=== PATIENT | female | born 1980 | race Caucasian/White ===

== ENCOUNTER 2019-12-10 15:32 | Outpatient (CLI) | payer OTHER ==
[2019-12-10] MEDS ORDERED: MULT-706 PO (16:03)
[2019-12-10] MEDS ORDERED: Echinacea PO (16:03)
[2019-12-10] MEDS ORDERED: [UNRECOGNIZED DRUG - OTHER] PO (16:03)
[2019-12-10] MEDS ORDERED: OMEG-76 PO (16:03)
[2019-12-10] MEDS ORDERED: [UNRECOGNIZED DRUG - OTHER] PO (16:03)
[2019-12-10] MEDS ORDERED: CHOL10003 PO (16:03)
[2019-12-10] MEDS ORDERED: MULT-658 PO (16:03)
[2019-12-10] MEDS ORDERED: NATURAL VITALITY PO (16:03)
[2019-12-10] MEDS ORDERED: RENAFOOD PO (16:03)
[2019-12-10] MEDS ORDERED: Livaplex PO (16:03)
[2019-12-10] MEDS ORDERED: ASCO100019 PO (16:03)
[2019-12-10] MEDS ORDERED: CALCIUM LACTATE PO (16:03)
[2019-12-10] MEDS ORDERED: [UNRECOGNIZED DRUG - OTHER] PO (16:03)
[2019-12-10] MEDS ORDERED: [UNRECOGNIZED DRUG - OTHER] PO (16:03)
[2019-12-10] MEDS ORDERED: [UNRECOGNIZED DRUG - OTHER] PO (16:03)
[2019-12-10] MEDS ORDERED: LACT1CAP35 PO (16:03)
[2019-12-10] MEDS ORDERED: POTA99TA2 PO (16:03)
[2019-12-10] MEDS ORDERED: CALCIUM PO (16:03)
[2019-12-10] MEDS ORDERED: MAG PO (16:03)
[2019-12-10] MEDS ORDERED: [UNRECOGNIZED DRUG - OTHER] PO (16:03)
[2019-12-10 16:11] LABS: BASOPHILS # (AUTO) 0.04 x10^3/uL (0-0.1); BASOPHILS % (AUTO) 1 % (0-1); EOSINOPHILS # (AUTO) 0.04 x10^3/uL (0-0.4); EOSINOPHILS % (AUTO) 0 % (1-7); LYMPHOCYTES # (AUTO) 1.42 x10^3/uL (1-3.4); LYMPHOCYTES % (AUTO) 17 % (22-44); MD NO; MEAN CORPUSCULAR HGB CONC 32.8 g/dL (32.4-35.8); MEAN CORPUSCULAR VOLUME 94.5 fL (80-100); MEAN PLATELET VOLUME 7.8 fL (7.4-10.4); MONOCYTES # (AUTO) 0.55 x10^3/uL (0.2-0.8); MONOCYTES % (AUTO) 7 % (2-9); NEUTROPHILS # (AUTO) 6.12 x10^3/uL (1.8-6.8); NEUTROPHILS % (AUTO) 75 % (42-75); PLATELET COUNT 269 x10^3/uL (130-400); RED BLOOD COUNT 4.54 x10^6/uL (3.82-5.3); RED CELL DISTRIBUTION WIDTH 13.5 % (9.6-15.2)
[2019-12-10 16:38] LABS: MICROSCOPIC AUTO
== END 2019-12-10 23:59 | disposition home or self-care (01) ==
LOC: STAR 15:32
PROVIDERS: ATTEND Obstetrics & Gynecology
DX: Z01.818 Encounter for other preprocedural examination (principal); N92.0 Excessive and frequent menstruation with regular cycle; N94.6 Dysmenorrhea, unspecified
CPT/HCPCS: 36415; 81001; 85025; 87086

== ENCOUNTER 2019-12-18 09:43 | Day surgery (SDC) | payer OTHER ==
[~2019-12-18] VITALS: Ht 170.2 cm; Wt 66.6 kg
[~2019-12-18 09:43] MED LIST: ASCO100019 PO; CALCIUM LACTATE PO; CALCIUM PO; CHOL10003 PO; Echinacea PO; LACT1CAP35 PO; Livaplex PO; MAG PO; MULT-658 PO; MULT-706 PO; NATURAL VITALITY PO; OMEG-76 PO; POTA99TA2 PO; RENAFOOD PO; [UNRECOGNIZED DRUG - OTHER] PO; [UNRECOGNIZED DRUG - OTHER] PO; [UNRECOGNIZED DRUG - OTHER] PO; [UNRECOGNIZED DRUG - OTHER] PO; [UNRECOGNIZED DRUG - OTHER] PO; [UNRECOGNIZED DRUG - OTHER] PO
[2019-12-18] MEDS ORDERED: LACTATED RINGERS 1,000 ML IV SCH (10:19)
[2019-12-18] MEDS ORDERED: CHLORHEXIDINE 15 ML UDC ONE (10:28)
[2019-12-18] MEDS ORDERED: ACETAMINOPHEN 500 MG TABLET PO ONE (10:30)
[2019-12-18] MEDS ORDERED: CHLORHEXIDINE 15 ML UDC MM ONE (10:30)
[2019-12-18 10:41] LABS: HCG UR SG 1.009 (1.003-1.030)
[2019-12-18] MEDS ORDERED: MIDAZOLAM 1 MG/ML, 2ML ONE (10:54)
[2019-12-18] MEDS ORDERED: FENTANYL PF 100 MCG/2ML ONE ×2 (10:54→14:05)
[2019-12-18] MEDS ORDERED: MEPERIDINE/PF 25MG/0.5ML IVPush PRN (11:30)
[2019-12-18] MEDS ORDERED: ONDANSETRON 2MG/ML, 2ML IVPush PRN (11:30)
[2019-12-18] MEDS ORDERED: LABETALOL 5MG/ML, 20ML IV PRN (11:30)
[2019-12-18] MEDS ORDERED: FENTANYL PF 100 MCG/2ML IV PRN (11:30)
[2019-12-18] MEDS ORDERED: OXYcodone 5 MG/5 ML ORAL.SOL UDC PO PRN (11:30)
[2019-12-18] MEDS ORDERED: PROMETHAZINE 25 MG/ML, 1ML IVPush PRN (11:30)
[2019-12-18] MEDS ORDERED: hydrALAzine 20 MG/ML, 1ML IV PRN (11:30)
[2019-12-18] MEDS ORDERED: PROPOFOL 10 MG/ML, 20ML ONE (12:28)
[2019-12-18] MEDS ORDERED: DEXAMETHASONE 4 MG/ML, 1ML ONE (12:28)
[2019-12-18] MEDS ORDERED: ONDANSETRON 2MG/ML, 2ML ONE (12:28)
[2019-12-18] MEDS ORDERED: CEFAZOLIN 1,000 MG ONE (12:50)
[2019-12-18] MEDS ORDERED: BUPIVACAINE/PF-EPI 0.25% 1:200K INFIL ONE (13:40)
[2019-12-18] MEDS ORDERED: OXYcodone 5 MG/5 ML ORAL.SOL UDC ONE (14:05)
[2019-12-18] MEDS ORDERED: BUPIVACAINE/PF-EPI 0.25% 1:200K ONE (14:30)
== END 2019-12-18 18:50 | disposition home or self-care (01) ==
LOC: OUT 09:43
PROVIDERS: ATTEND Obstetrics & Gynecology
DX: N94.6 Dysmenorrhea, unspecified (principal); N92.0 Excessive and frequent menstruation with regular cycle; N84.0 Polyp of corpus uteri; N84.1 Polyp of cervix uteri; E78.5 Hyperlipidemia, unspecified; I10 Essential (primary) hypertension; Z79.899 Other long term (current) drug therapy; Z88.8 Allergy status to other drugs, medicaments and biological substances; Z83.3 Family history of diabetes mellitus; Z98.890 Other specified postprocedural states
CPT/HCPCS: 58563; 81025; 88305; J0690; J1100; J2250; J2405; J2704; J3010; J7120